=== PATIENT | female | born 1995 | race African-American/Black ===

== ENCOUNTER 2018-05-15 03:43 | Inpatient (IN) | payer SELFPAY ==
[2018-05-15] MEDS ORDERED: Tranexamic Acid 1,000 MG in Sodium Chloride 0.9% 100 ML IV PRN (04:58)
[2018-05-15] MEDS ORDERED: Water For Irrigation,Sterile 1,000 ML Container IRR PRN (04:58)
[2018-05-15] MEDS ORDERED: Nalbuphine 10 MG/1 ML Vial IVPUSH PRN (04:58)
[2018-05-15] MEDS ORDERED: Methylergonovine 0.2 MG/1 ML Amp IM PRN (04:58)
[2018-05-15] MEDS ORDERED: Butorphanol 1 MG/ML SDV IVPUSH PRN (04:58)
[2018-05-15] MEDS ORDERED: Sodium Chloride 0.9% 2.5 ML Syringe FLUSH PRN (04:58)
[2018-05-15] MEDS ORDERED: Misoprostol 200 MCG Tab PO PRN (04:58)
[2018-05-15] MEDS ORDERED: Lidocaine 1% 50 ML MDV INJECT PRN (04:58)
[2018-05-15] MEDS ORDERED: Sodium Chloride 0.9% 10 ML Syringe FLUSH PRN (04:58)
[2018-05-15] MEDS ORDERED: Carboprost Tromethamine 250 MCG/1 ML Amp IM PRN (04:58)
[2018-05-15] MEDS ORDERED: Oxytocin/0.9 % Sodium Chloride 30 UNIT/500 ML BAG IV SCH (05:00)
[2018-05-15] MEDS ORDERED: Lactated Ringers 1,000 ML IV SCH (05:00)
[2018-05-15] MEDS ORDERED: oxyCODONE 5 MG Tab PO PRN (10:04)
[2018-05-15] MEDS ORDERED: Lanolin 100% Cream 7 GM Tube TOP PRN (10:04)
[2018-05-15] MEDS ORDERED: Docusate Sodium 100 MG Cap PO PRN (10:04)
[2018-05-15] MEDS ORDERED: Witch Hazel Medicated Pads 40/Jar TOP PRN (10:04)
[2018-05-15] MEDS ORDERED: Benzocaine/Menthol 20%-0.5% Spray 78 GM Cannister TOP PRN (10:04)
[2018-05-15] MEDS ORDERED: Acetaminophen 500 MG Tab PO PRN ×2 (10:04)
[2018-05-15] MEDS ORDERED: Ibuprofen 400 MG Tab PO PRN (10:04)
[2018-05-15] MEDS ORDERED: Bisacodyl 10 MG Supp RECTAL PRN (10:04)
--- NOTE | 2018-05-15 10:11 | PCM.DEL ---
L & D Note - General Info Date of Service: 05/15/18 - Delivery Note Labor: Spontaneous Delivery Outcome: Livebirth Delivery Method: Spontaneous Vaginal Delivery-Single Presentation: Left Occiput Anterior (MAUDE) Nuchal Cord: Present, Reduced Prep: Other Anesthesia Type: Local Anesthetic: Lidocaine (Xylocaine) 1% Plain Local Anesthetic Volume: 5cc Amniotic Fluid Description: Clear Episiotomy Type: None Laceration: 1st Degree, Labial, Vaginal Suture type: Vicryl Suture size: 2-0 Placenta: Intact, Spontaneous Cord: 3 Vessels Estimated Blood Loss: 200 Resuscitation Needed: No : Bulb Syringe, Stimulated, [place] Used Second Stage Interventions: Reports: Encouragement Given, Pushing Ineffectively , Pushing, Feet in Foot Rests - General Info Date of Service: 05/15/18 - Patient Data Weight - Most Recent: 190 lb Lab Results Last 24 Hours: Laboratory Results - last 24 hr 05/15/18 05/15/18 05/15/18 Range/Units 04:13 05:20 05:20 WBC 9.30 (4.0-11.0) K/uL RBC 4.63 (4.30-5.90) M/uL Hgb 10.5 L (12.0-16.0) g/dL Hct 31.6 L (36.0-46.0) % MCV 68.3 L (80.0-98.0) fL MCH 22.7 L (27.0-32.0) pg MCHC 33.2 (31.0-37.0) g/dL RDW Std Deviation 38.2 (28.0-62.0) fl RDW Coeff of [place] 16 H (11.0-15.0) % Plt Count 162 (150-400) K/uL Nucleated RBC % 0.0 /100WBC Nucleated RBCs # 0 K/uL Membrane Rupture POSITIVE Blood Type A POSITIVE Antibody Screen NEGATIVE Med Orders - Current: Current Medications Acetaminophen (Tylenol Extra Strength) 500 mg PO Q4H PRN PRN Reason: Pain Acetaminophen (Tylenol Extra Strength) 1,000 mg PO Q4H PRN PRN Reason: Pain Benzocaine/Menthol (Dermoplast Pain Relief 20%-0.5% [place]) 78 gm TOP ASDIRECTED PRN PRN Reason: Perineal Comfort Measure Bisacodyl (Dulcolax) 10 mg RECTAL .ONCE PRN PRN Reason: Constipation Docusate Sodium (Colace) 100 mg PO BID PRN PRN Reason: Constipation Emollient Ointment (Lansinoh Hpa) 0 gm TOP ASDIRECTED PRN PRN Reason: Sore Nipples Ibuprofen (Motrin) 400 mg PO Q4H PRN PRN Reason: Pain Ibuprofen (Motrin) 800 mg PO Q6H PRN PRN Reason: Pain Oxycodone HCl (Oxycodone) 5 mg PO Q2H PRN PRN Reason: Pain Witch Birgit (Tucks) 1 pad TOP ASDIRECTED PRN PRN Reason: comfort care Discontinued Medications Butorphanol Tartrate (Stadol) 1 mg IVPUSH Q1H PRN PRN Reason: Pain Carboprost Tromethamine (Hemabate Ds) 250 mcg IM ASDIRECTED PRN PRN Reason: Post Hemorrhage Tranexamic Acid 1,000 mg/ (Sodium Chloride) 110 mls @ 660 mls/hr IV ONETIME PRN PRN Reason: Bleeding Lactated Ringer's (Ringers, Lactated) 1,000 mls @ 150 mls/hr IV ASDIRECTED POPEYE Oxytocin/Sodium Chloride (Oxytocin 30 Unit/500 Ml-Ns) 30 unit in 500 mls @ 999 mls/hr IV TITRATE [facility] Last Admin: 05/15/18 09:54 Dose: 999 mls/hr Lidocaine HCl (Xylocaine 1%) 50 ml INJECT .ONCE PRN PRN Reason: Laceration repair Methylergonovine Maleate (Methergine) 0.2 mg IM ASDIRECTED PRN PRN Reason: Post Hemorrhage Misoprostol (Cytotec) 200 mcg PO .ONCE PRN PRN Reason: Post Hemorrhage Nalbuphine HCl (Nubain) 10 mg IVPUSH Q1H PRN PRN Reason: Pain (severe 7-10) Sodium Chloride (Saline Flush) 10 ml FLUSH ASDIRECTED PRN PRN Reason: Keep Vein Open Sodium Chloride (Saline Flush) 2.5 ml FLUSH ASDIRECTED PRN PRN Reason: Keep Vein Open Sterile Water (Sterile Water For Irrigation) 1,000 ml IRR ASDIRECTED PRN PRN Reason: delivery Last Admin: 05/15/18 09:30 Dose: 1,000 ml - Problem List & Annotations (1) Vaginal delivery SNOMED Code(s): 244965807 Code(s): O80 - ENCOUNTER FOR FULL-TERM UNCOMPLICATED DELIVERY Status: Acute Current Visit: Yes - Problem List Review Problem List Initiated/Reviewed/Updated: Yes - My Orders Last 24 Hours: My Active Orders 05/15/18 09:36 BLOOD GAS ARTERIAL UMBILICAL [BG] Routine BLOOD GAS VENOUS UMBILICAL [BG] Routine 05/15/18 10:04 Acetaminophen [Tylenol Extra Strength] 1,000 mg PO Q4H PRN Acetaminophen [Tylenol Extra Strength] 500 mg PO Q4H PRN Benzocaine/Menthol [Dermoplast Pain Relief 20%-0.5% [place]] 78 gm TOP ASDIRECTED PRN Bisacodyl [Dulcolax] 10 mg RECTAL .ONCE PRN Docusate Sodium [Colace] 100 mg PO BID PRN Ibuprofen [Motrin] 400 mg PO Q4H PRN Ibuprofen [Motrin] 800 mg PO Q6H PRN Lanolin [Lansinoh HPA] See Dose Instructions TOP ASDIRECTED PRN Witch Birgit [Tucks] 1 pad TOP ASDIRECTED PRN oxyCODONE 5 mg PO Q2H PRN Breast Pump [WOMSER] Per Unit Routine Resuscitation Status Routine 05/15/18 10:05 Patient Status [ADT] Routine May Shower [RC] ASDIRECTED Up ad Antonella [RC] ASDIRECTED Vital Signs [RC] PER UNIT ROUTINE Assess Lochia [WOMSER] Per Unit Routine Assess Uterine Involution [WOMSER] Per Unit Routine Perineal Care [OM.PC] Per Unit Routine Peripheral IV Discontinue [OM.PC] Routine 05/15/18 Lunch Regular Diet [DIET] 05/16/18 05:11 HEMOGLOBIN/HEMATOCRIT,HH [HEME] Timed
[2018-05-15] MEDS ORDERED: Aluminum Hydroxide/Magnesium Hydroxide/Simethicone Susp 30 ML Cup PO ONE (11:23)
[2018-05-15] MEDS: Ibuprofen 800 MG Tab PO PRN ×2 (12:07→20:49)
--- NOTE | 2018-05-15 14:28 | OR ---
SURGEON: Claribel Hilliard MD DATE OF PROCEDURE: 05/15/2018 PREOPERATIVE DIAGNOSES: 1. Term at 39 weeks. 2. Active labor with spontaneous rupture of membrane POSTOPERATIVE DIAGNOSES: 1. Term at 39 weeks. 2. Active labor with spontaneous rupture of membrane 3. Delivered. PROCEDURES: 1. Spontaneous vaginal delivery. 2. Repair of perineal lacerations. ANESTHESIA: Local. ESTIMATED BLOOD LOSS: 200 mL. COMPLICATIONS: None. DISPOSITION: Mother and baby stable in Labor and Delivery room, bonding. FINDINGS: Male , weight 3000 g, score 8 and 9 at 1 and 5 minutes respectively. Grossly normal placenta with 3-vessel cord. First-degree vaginal laceration and left labial laceration. BRIEF HISTORY: The patient is a 23-year-old primigravida, 39 weeks gestation, who is a patient of Nicole Valverde,the director enterprise data architecture at [facility]. [facility] is taking care of the patients from their practice this week since the attending physician, Dr. Donaldson is away. Chelle presented early hours of this morning at about 5:00am with a history of spontaneous rupture of membranes, clear amniotic fluid at 4:00 a.m. accompanied with regular contractions. On examination, she was confirmed to be grossly ruptured and was 5 cm dilated on admission. With category 1 tracing, she was admitted and observed for progression of labor. Her care was otherwise uncomplicated and the GBS status was negative. When she was re-examined 2 hours later, she had progressed to 7 cm dilatation and was coping well with her contractions. The heart tracing continued to be reassuring. She declined pain management. With complaints of increasing rectal pressure, I re-evaluated her at about 9:00 a.m.,she was fully dilated at +2 station. Owing to the fact that she had no epidural on board and with a strong urge to push, she was set up for delivery in modified dorsal lithotomy position. She pushed initially ineffectively, but with good encouragement and support, she pushed the baby's head down to a +4 station. DESCRIPTION OF PROCEDURE: She had a spontaneous vaginal delivery of a live male in left occipital anterior position, loose nuchal cord, which was reduced. Clear amniotic fluid at delivery. Anterior and posterior shoulders and the rest of the baby were delivered without difficulty. The baby was vigorous and cried spontaneously at and was delivered onto the maternal abdomen, with the nursery nurse in attendance stimulating and drying him. Delayed cord clamping was observed and the cord was subsequently cut by the father of the baby. Low-dose oxytocin had been commenced while the patient was pushing which was just 2 milliunits per minute and this was then converted to titration for active management of third stage of labor. The placenta was delivered by controlled cord traction, appeared to be complete and intact. Examination of the perineum revealed a transverse vaginal laceration located around the hymenal ring and also left labial laceration. The area was then infiltrated with approximately 5 mL of 1% lidocaine. After adequate anesthesia was confirmed, it was then repaired with 2-0 Vicryl suture. Both repairs were hemostatic. Uterine massage was performed, uterus was found to be well contracted below the umbilicus. The patient tolerated the procedure well. Sponge, instrument, and needle counts were correct at the end of the delivery. ADUMVIV / MODL /[id number] MTDYue
--- NOTE | 2018-05-16 08:07 | PCM.PNPP ---
- General Info Date of Service: 05/16/18 Functional Status: Reports: Pain Controlled, Tolerating Diet, Ambulating, Urinating - Review of Systems General: Denies: Fever, Chills HEENT: Denies: Headaches Pulmonary: Denies: Shortness of Breath, Pleuritic Chest Pain Cardiovascular: Denies: Chest Pain, Palpitations, Dyspnea on Exertion Gastrointestinal: Denies: Abdominal Pain Genitourinary: Denies: Dysuria, Incontinence, Retention - General Info Date of Service: 05/16/18 - Patient Data Vital Signs - Most Recent: Last Vital Signs Temp 36.8 C 05/16/18 05:00 Pulse 77 05/16/18 05:00 Resp 16 05/16/18 05:00 BP 115/68 05/16/18 05:00 Pulse Ox 100 05/16/18 05:00 Weight - Most Recent: 190 lb Lab Results - Last 24 Hours: Laboratory Results - last 24 hr 05/15/18 05/16/18 Range/Units 09:34 05:50 Hgb 9.8 L (12.0-16.0) g/dL Hct 30.2 L (36.0-46.0) % Cord ABG pH 7.212 (7.18-7.38) Cord ABG Base Excess -7 (-10--2) Cord VBG pH 7.287 (7.25-7.45) Cord VBG Base Excess -7 (-10--2) Med Orders - Current: Current Medications Acetaminophen (Tylenol Extra Strength) 500 mg PO Q4H PRN PRN Reason: Pain Acetaminophen (Tylenol Extra Strength) 1,000 mg PO Q4H PRN PRN Reason: Pain Benzocaine/Menthol (Dermoplast Pain Relief 20%-0.5% [place]) 78 gm TOP ASDIRECTED PRN PRN Reason: Perineal Comfort Measure Last Admin: 05/15/18 11:31 Dose: 78 gm Bisacodyl (Dulcolax) 10 mg RECTAL .ONCE PRN PRN Reason: Constipation Docusate Sodium (Colace) 100 mg PO BID PRN PRN Reason: Constipation Last Admin: 05/15/18 12:07 Dose: 100 mg Emollient Ointment (Lansinoh Hpa) 0 gm TOP ASDIRECTED PRN PRN Reason: Sore Nipples Last Admin: 05/15/18 11:32 Dose: 7 gm Ibuprofen (Motrin) 400 mg PO Q4H PRN PRN Reason: Pain Ibuprofen (Motrin) 800 mg PO Q6H PRN PRN Reason: Pain Last Admin: 05/15/18 20:49 Dose: 800 mg Oxycodone HCl (Oxycodone) 5 mg PO Q2H PRN PRN Reason: Pain Witch [place] (Tucks) 1 pad TOP ASDIRECTED PRN PRN Reason: comfort care Last Admin: 05/15/18 11:31 Dose: 1 pad Discontinued Medications Al Hydroxide/Mg Hydroxide (Mag-Al Plus) 30 ml PO ONETIME ONE Stop: 05/15/18 11:24 Last Admin: 05/15/18 12:06 Dose: 30 ml Butorphanol Tartrate (Stadol) 1 mg IVPUSH Q1H PRN PRN Reason: Pain Carboprost Tromethamine (Hemabate Ds) 250 mcg IM ASDIRECTED PRN PRN Reason: Post Hemorrhage Tranexamic Acid 1,000 mg/ (Sodium Chloride) 110 mls @ 660 mls/hr IV ONETIME PRN PRN Reason: Bleeding Lactated Ringer's (Ringers, Lactated) 1,000 mls @ 150 mls/hr IV ASDIRECTED POPEYE Oxytocin/Sodium Chloride (Oxytocin 30 Unit/500 Ml-Ns) 30 unit in 500 mls @ 999 mls/hr IV TITRATE [facility] Last Admin: 05/15/18 09:34 Dose: 999 mls/hr Lidocaine HCl (Xylocaine 1%) 50 ml INJECT .ONCE PRN PRN Reason: Laceration repair Methylergonovine Maleate (Methergine) 0.2 mg IM ASDIRECTED PRN PRN Reason: Post Hemorrhage Misoprostol (Cytotec) 200 mcg PO .ONCE PRN PRN Reason: Post Hemorrhage Nalbuphine HCl (Nubain) 10 mg IVPUSH Q1H PRN PRN Reason: Pain (severe 7-10) Sodium Chloride (Saline Flush) 10 ml FLUSH ASDIRECTED PRN PRN Reason: Keep Vein Open Sodium Chloride (Saline Flush) 2.5 ml FLUSH ASDIRECTED PRN PRN Reason: Keep Vein Open Sterile Water (Sterile Water For Irrigation) 1,000 ml IRR ASDIRECTED PRN PRN Reason: delivery Last Admin: 05/15/18 09:30 Dose: 1,000 ml - Infant Interaction Infant Disposition, : in Room with Family Infant Interaction: Holding Infant Infant Feeding: Attempted ; Nursed Fair/Poor (Supplemented with formulae), Continues to Breastfeed, Encouraged to Breastfeed Support Person: , Friend - Recovery Exam Fundal Tone: Firm Fundal Level: 1 Fingerbreadths Below Umbilicus Fundal Placement: Midline Lochia Amount: Scant Lochia Color: Rubra/Red Perineum Description: Intact, Minimal Bruising/Swelling Other Perinuem Description: First degree tear Episiotomy/Laceration: Approximated Bladder Status: Voiding Urinary Elimination: Voided - Exam General: Alert, Oriented Lungs: Clear to Auscultation, Normal Respiratory Effort Cardiovascular: Regular Rate, Regular Rhythm GI/Abdominal Exam: Normal Bowel Sounds Extremities: Non-Tender, Pedal Edema Wound/Incisions: Healing Well - Problem List & Annotations (1) Vaginal delivery SNOMED Code(s): 890270250 Code(s): O80 - ENCOUNTER FOR FULL-TERM UNCOMPLICATED DELIVERY Status: Acute Current Visit: Yes - Problem List Review Problem List Initiated/Reviewed/Updated: Yes - My Orders Last 24 Hours: My Active Orders 05/15/18 10:04 Acetaminophen [Tylenol Extra Strength] 1,000 mg PO Q4H PRN Acetaminophen [Tylenol Extra Strength] 500 mg PO Q4H PRN Benzocaine/Menthol [Dermoplast Pain Relief 20%-0.5% [place]] 78 gm TOP ASDIRECTED PRN Bisacodyl [Dulcolax] 10 mg RECTAL .ONCE PRN Docusate Sodium [Colace] 100 mg PO BID PRN Ibuprofen [Motrin] 400 mg PO Q4H PRN Ibuprofen [Motrin] 800 mg PO Q6H PRN Lanolin [Lansinoh HPA] See Dose Instructions TOP ASDIRECTED PRN Witch [place] [Tucks] 1 pad TOP ASDIRECTED PRN oxyCODONE 5 mg PO Q2H PRN Breast Pump [WOMSER] Per Unit Routine Resuscitation Status Routine 05/15/18 10:05 Patient Status [ADT] Routine May Shower [RC] ASDIRECTED Up ad [place]ella [RC] ASDIRECTED Vital Signs [RC] PER UNIT ROUTINE Assess Lochia [WOMSER] Per Unit Routine Assess Uterine Involution [WOMSER] Per Unit Routine Perineal Care [OM.PC] Per Unit Routine Peripheral IV Discontinue [OM.PC] Routine 05/15/18 Lunch Regular Diet [DIET] - Assessment Assessment:: PPD#1 s/p NVD, stable and afebrile - Plan Plan:: Discharge instructions reviewed Nothing in the vagina for 6 weeks Bleeding and infections precautions reviewed Continue PNV and start Iron supplements May use OTC meds for pain Follow up in [facility] in 6 weeks
== END 2018-05-16 12:55 | disposition home or self-care (01) | DRG 775 ==
LOC: MW.OBCHECK 03:43 → MW.OB 03:47 → MW.OBCHECK 04:58 → UNDOADMOB 04:58 → MW.OB 04:59 → UNDOADMOB 04:59 → OBSVTOIN 09:34 → MW.OB 13:12
PROVIDERS: ADMIT Obstetrics & Gynecology; ATTEND Obstetrics & Gynecology
PROC: 10E0XZZ Delivery of Products of Conception, External Approach (ICD-10-PCS; principal; 2018-05-15)
PROC: 0HQ9XZZ Repair Perineum Skin, External Approach (ICD-10-PCS; 2018-05-15)
DX: O42.02 Full-term premature rupture of membranes, onset of labor within 24 hours of rupture (principal); O70.0 First degree perineal laceration during delivery; Z3A.39 39 weeks gestation of pregnancy; Z37.0 Single live birth
CPT/HCPCS: 36415; 59025; 59409; 82803; 84112; 85014; 85018; 85027; 86850; 86900; 86901; A9270-GY; J2590

== ENCOUNTER 2018-11-19 12:48 | Emergency (ER) | payer SELFPAY ==
--- NOTE | 2018-11-19 14:08 | EDM.PDOC ---
ED HPI GENERAL MEDICAL PROBLEM - General Chief Complaint: Fever Stated Complaint: FEVER PREG. Time Seen by Provider: 11/19/18 14:04 Source of Information: Reports: Patient History Limitations: Reports: No Limitations - History of Present Illness INITIAL COMMENTS - FREE TEXT/NARRATIVE: HISTORY AND PHYSICAL: History of present illness: Patient is a 23-year-old female who presents to the emergency room today with complaints of fever and generalized body aches since Sunday. She took a test yesterday, found out she is . LMP approx 6 weeks ago. She denies any cough, shortness of breath, chest pain. Denies any abdominal pain , nausea, vomiting, diarrhea or constipation. She has mild pelvic pain with dysuria. Denies any vaginal bleeding or discharge. States she has [facility] with [facility]. Review of systems: As per history of present illness and below otherwise all systems reviewed and negative. Past medical history: As per history of present illness and as reviewed below otherwise noncontributory. Surgical history: As per history of present illness and as reviewed below otherwise noncontributory. Social history: See social history for further information Family history: As per history of present illness and as reviewed below otherwise noncontributory. Physical exam: General: Well-developed and well-nourished 23-year-old -[place] female. Alert and oriented. Nontoxic appearing and in no acute distress. HEENT: Atraumatic, normocephalic, pupils equal and reactive bilaterally, negative for conjunctival pallor or scleral icterus, mucous membranes moist, TMs normal bilaterally, throat clear, neck supple, nontender, trachea midline. No drooling or trismus noted. No meningeal signs. No hot potato voice noted. Lungs: Clear to auscultation, breath sounds equal bilaterally, chest nontender. Heart: S1S2, regular rate and rhythm without overt murmur Abdomen: Soft, nondistended, nontender. Negative for masses or hepatosplenomegaly. Negative for costovertebral tenderness. Pelvis: Stable nontender. Genitourinary: Deferred. Rectal: Deferred. Skin: Intact, warm, dry. No lesions or rashes noted. Extremities: Atraumatic, negative for cords or calf pain. Neurovascular unremarkable. Neuro: Awake, alert, oriented. Cranial nerves II through XII unremarkable. Cerebellum unremarkable. Motor and sensory unremarkable throughout. Exam nonfocal. Notes: Patient's lab work is unremarkable. I do want her to follow-up closely with her EQUIPMENT MAINTENANCE TECH, Nicole Muhammad for further evaluation and management. I am to treat her with Augmentin and some Zofran as she does mention concerned that she may have some nausea due to her recent use of . Supportive care measures were reviewed and discussed. Denies any further questions or concerns at this time. Diagnostics: Influenza, UA, HCGU Therapeutics: IV fluid Prescription: Augmentin Zofran Impression: UTI Dehydration Plan: 1. Please take the medication as directed. 2. Tylenol as needed for pain. Increase your oral fluids to prevent dehydration. 3. Please follow-up with Nicole Valverde in the next 1-2 days. Return to ED as needed and as discussed. Definitive disposition and diagnosis as appropriate pending reevaluation and review of above. Lower Abdominal Pain Score (Numeric/FACES): 5 - Related Data Allergies Allergy/AdvReac Type Severity Reaction Status Date / Time No Known Allergies Allergy Verified 11/19/18 13:25 Home Meds: Home Meds . 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 ED EXAM, GENERAL - Physical Exam Exam: See Below (See dictation) Course - Vital Signs Last Recorded V/S: Last Vital Signs Temp 98.4 F 11/19/18 13:23 Pulse 95 11/19/18 13:23 Resp 16 11/19/18 13:23 BP 116/66 11/19/18 13:23 Pulse Ox 100 11/19/18 13:23 - Orders/Labs/Meds Orders: Active Orders 24 hr Category Date Time Status CULTURE URINE [RM] Stat Lab 11/19/18 14:06 Received Labs: Laboratory Tests 11/19/18 11/19/18 11/19/18 Range/Units 14:06 14:06 15:09 WBC 2.91 L (4.0-11.0) K/uL RBC 5.65 (4.30-5.90) M/uL Hgb 11.8 L (12.0-16.0) g/dL Hct 35.8 L (36.0-46.0) % MCV 63.4 L (80.0-98.0) fL MCH 20.9 L (27.0-32.0) pg MCHC 33.0 (31.0-37.0) g/dL RDW Std Deviation 41.3 (28.0-62.0) fl RDW Coeff of [place] 19 H (11.0-15.0) % Plt Count 197 (150-400) K/uL Neut % (Auto) 50.5 (48.0-80.0) % Lymph % (Auto) 37.5 (16.0-40.0) % [place] % (Auto) 11.7 (0.0-15.0) % Eos % (Auto) 0.0 (0.0-7.0) % Baso % (Auto) 0.3 (0.0-1.5) % Neut # (Auto) 1.5 (1.4-5.7) K/uL Lymph # (Auto) 1.1 (0.6-2.4) K/uL [place] # (Auto) 0.3 (0.0-0.8) K/uL Eos # (Auto) 0.0 (0.0-0.7) K/uL Baso # (Auto) 0.0 (0.0-0.1) K/uL Nucleated RBC % 0.0 /100WBC Nucleated RBCs # 0 K/uL Sodium (136-145) mmol/L Potassium (3.5-5.1) mmol/L Chloride (98-107) mmol/L Carbon Dioxide (21.0-32.0) mmol/L BUN (7.0-18.0) mg/dL Creatinine (0.6-1.0) mg/dL Est Cr Clr Drug Dosing mL/min Estimated GFR (MDRD) ml/min Glucose (74-106) mg/dL Calcium (8.5-10.1) mg/dL Total Bilirubin (0.2-1.0) mg/dL AST (15-37) IU/L ALT (14-63) IU/L Alkaline Phosphatase (46-116) U/L Total Protein (6.4-8.2) g/dL Albumin (3.4-5.0) g/dL Globulin (2.6-4.0) g/dL Albumin/Globulin Ratio (0.9-1.6) Urine Color YELLOW Urine Appearance SLT CLOUDY Urine pH 6.0 (5.0-8.0) Ur Specific [place] >= 1.030 (1.001-1.035) Urine Protein 30 H (NEGATIVE) mg/dL Urine Glucose (UA) NEGATIVE (NEGATIVE) mg/dL Urine Ketones 40 H (NEGATIVE) mg/dL Urine Occult Blood NEGATIVE (NEGATIVE) Urine Nitrite NEGATIVE (NEGATIVE) Urine Bilirubin SMALL H (NEGATIVE) Urine Ictotest NEGATIVE Urine Urobilinogen 1.0 (<2.0) EU/dL Ur Leukocyte Esterase TRACE H (NEGATIVE) Urine RBC 0-2 (0-2/HPF) Urine WBC 5-10 (0-5/HPF) Ur Epithelial Cells MANY (NONE-FEW) Urine Bacteria FEW (NEGATIVE) Urine Mucus LIGHT (NONE-MOD) Urine HCG, Qual POSITIVE (NEGATIVE) 11/19/18 Range/Units 15:09 WBC (4.0-11.0) K/uL RBC (4.30-5.90) M/uL Hgb (12.0-16.0) g/dL Hct (36.0-46.0) % MCV (80.0-98.0) fL MCH (27.0-32.0) pg MCHC (31.0-37.0) g/dL RDW Std Deviation (28.0-62.0) fl RDW Coeff of [place] (11.0-15.0) % Plt Count (150-400) K/uL Neut % (Auto) (48.0-80.0) % Lymph % (Auto) (16.0-40.0) % [place] % (Auto) (0.0-15.0) % Eos % (Auto) (0.0-7.0) % Baso % (Auto) (0.0-1.5) % Neut # (Auto) (1.4-5.7) K/uL Lymph # (Auto) (0.6-2.4) K/uL [place] # (Auto) (0.0-0.8) K/uL Eos # (Auto) (0.0-0.7) K/uL Baso # (Auto) (0.0-0.1) K/uL Nucleated RBC % /100WBC Nucleated RBCs # K/uL Sodium 136 (136-145) mmol/L Potassium 3.9 (3.5-5.1) mmol/L Chloride 99 (98-107) mmol/L Carbon Dioxide 24.3 (21.0-32.0) mmol/L BUN 9 (7.0-18.0) mg/dL Creatinine 0.7 (0.6-1.0) mg/dL Est Cr Clr Drug Dosing 132.85 mL/min Estimated GFR (MDRD) > 60.0 ml/min Glucose 78 (74-106) mg/dL Calcium 9.8 (8.5-10.1) mg/dL Total Bilirubin 0.4 (0.2-1.0) mg/dL AST 27 (15-37) IU/L ALT 25 (14-63) IU/L Alkaline Phosphatase 58 (46-116) U/L Total Protein 9.4 H (6.4-8.2) g/dL Albumin 4.0 (3.4-5.0) g/dL Globulin 5.4 H (2.6-4.0) g/dL Albumin/Globulin Ratio 0.7 L (0.9-1.6) Urine Color Urine Appearance Urine pH (5.0-8.0) Ur Specific [place] (1.001-1.035) Urine Protein (NEGATIVE) mg/dL Urine Glucose (UA) (NEGATIVE) mg/dL Urine Ketones (NEGATIVE) mg/dL Urine Occult Blood (NEGATIVE) Urine Nitrite (NEGATIVE) Urine Bilirubin (NEGATIVE) Urine Ictotest Urine Urobilinogen (<2.0) EU/dL Ur Leukocyte Esterase (NEGATIVE) Urine RBC (0-2/HPF) Urine WBC (0-5/HPF) Ur Epithelial Cells (NONE-FEW) Urine Bacteria (NEGATIVE) Urine Mucus (NONE-MOD) Urine HCG, Qual (NEGATIVE) Meds: Medications Discontinued Medications Generic Name Dose Route Start Last Admin Trade Name Freq PRN Reason Stop Dose Admin Sodium Chloride 1,000 mls @ 999 mls/hr 11/19/18 14:55 11/19/18 15:08 Normal Saline IV 11/19/18 15:55 999 mls/hr STAT ONE Administration Ondansetron HCl 4 mg 11/19/18 14:55 11/19/18 15:08 Zofran IVPUSH 11/19/18 14:56 4 mg ONETIME ONE Administration Departure - Departure Time of Disposition: 16:00 Disposition: Home, Self-Care 01 Clinical Impression: UTI (urinary tract infection) during Qualifiers: Trimester: first trimester Qualified Code(s): O23.41 - Unspecified infection of urinary tract in , first trimester - Discharge Information Instructions: Urinary Tract Infection, Adult, [id number] Referrals: Nicole Muhammad CNM [Primary Care Provider] - Forms: ED Department Discharge Additional Instructions: The following information is given to patients seen in the emergency department who are being discharged to home. This information is to outline your options for follow-up care. We provide all patients seen in our emergency department with a follow-up referral. The need for follow-up, as well as the timing and circumstances, are variable depending upon the specifics of your emergency department visit. If you don't have a primary care physician on staff, we will provide you with a referral. We always advise you to contact your personal physician following an emergency department visit to inform them of the circumstance of the visit and for follow-up with them and/or the need for any referrals to a consulting specialist. The emergency department will also refer you to a specialist when appropriate. This referral assures that you have the opportunity for follow-up care with a specialist. All of these measure are taken in an effort to provide you with optimal care, which includes your follow-up. Under all circumstances we always encourage you to contact your private physician who remains a resource for coordinating your care. When calling for follow-up care, please make the office aware that this follow-up is from your recent emergency room visit. If for any reason you are refused follow-up, please contact the [facility] Emergency Department at and asked to speak to the emergency department charge nurse. [facility] Primary Care: [facility] [address] [place] [id number] [facility] [address] [place] [address] 1. Please take the medication as directed. 2. Tylenol as needed for pain. Increase your oral fluids to prevent dehydration. 3. Please follow-up with Nicole Valverde in the next 1-2 days. Return to ED as needed and as discussed. - My Orders Last 24 Hours: My Active Orders 11/19/18 14:06 CULTURE URINE [RM] Stat - Assessment/Plan Last 24 Hours: My Active Orders 11/19/18 14:06 CULTURE URINE [RM] Stat
[2018-11-19] MEDS ORDERED: Ondansetron 4 MG/2 ML SDV IVPUSH ONE (14:55)
[2018-11-19] MEDS ORDERED: Sodium Chloride 0.9% 1,000 ML IV ONE (14:55)
[2018-11-19 15:49] LABS: CHLORIDE,CL 99 mmol/L (98-107); SODIUM,NA 136 mmol/L (136-145)
== END 2018-11-19 16:10 | disposition home or self-care (01) ==
LOC: MW.ED 12:48
DX: O23.41 Unspecified infection of urinary tract in pregnancy, first trimester (principal); O99.281 Endocrine, nutritional and metabolic diseases complicating pregnancy, first trimester; E86.0 Dehydration; Z3A.01 Less than 8 weeks gestation of pregnancy
CPT/HCPCS: 36415; 80053; 81001; 81025; 85025; 87086; 87804; 96361; 96374; 99284; J2405; J7040; 87088; 87186

== ENCOUNTER 2019-07-26 05:25 | Inpatient (IN) | payer BC ==
[2019-07-26] MEDS ORDERED: Misoprostol 200 MCG Tab PO PRN (05:31)
[2019-07-26] MEDS ORDERED: Carboprost Tromethamine 250 MCG/1 ML Amp IM PRN (05:31)
[2019-07-26] MEDS ORDERED: Tranexamic Acid 1,000 MG in Sodium Chloride 0.9% 100 ML IV PRN (05:31)
[2019-07-26] MEDS ORDERED: Water For Irrigation,Sterile 1,000 ML Container IRR PRN (05:31)
[2019-07-26] MEDS ORDERED: Sodium Chloride 0.9% 10 ML Syringe FLUSH PRN (05:31)
[2019-07-26] MEDS ORDERED: Lidocaine 1% 50 ML MDV INJECT PRN (05:31)
[2019-07-26] MEDS ORDERED: Sodium Chloride 0.9% 2.5 ML Syringe FLUSH PRN (05:31)
[2019-07-26] MEDS ORDERED: Butorphanol 1 MG/ML SDV IVPUSH PRN (05:31)
[2019-07-26] MEDS ORDERED: Nalbuphine 10 MG/1 ML Vial IVPUSH PRN (05:31)
[2019-07-26] MEDS ORDERED: Sodium Chloride 0.9% 10 ML SDV IV PRN (05:31)
[2019-07-26] MEDS ORDERED: Methylergonovine 0.2 MG/1 ML Amp IM PRN (05:31)
[2019-07-26] MEDS ORDERED: Lactated Ringers 1,000 ML IV SCH (05:45)
[2019-07-26] MEDS ORDERED: Oxytocin/0.9 % Sodium Chloride 30 UNIT/500 ML BAG IV SCH (05:45)
[2019-07-26] MEDS ORDERED: Benzocaine/Menthol 20%-0.5% Spray 78 GM Cannister TOP PRN (05:58)
[2019-07-26] MEDS ORDERED: Lanolin 100% Cream 7 GM Tube TOP PRN (05:58)
[2019-07-26] MEDS ORDERED: oxyCODONE 5 MG Tab PO PRN (05:58)
[2019-07-26] MEDS ORDERED: Witch Hazel Medicated Pads 40/Jar TOP PRN (05:58)
[2019-07-26] MEDS ORDERED: Ibuprofen 400 MG Tab PO PRN (05:58)
[2019-07-26] MEDS ORDERED: Ibuprofen 800 MG Tab PO PRN (05:58)
[2019-07-26] MEDS ORDERED: Docusate Sodium 100 MG Cap PO PRN (05:58)
[2019-07-26] MEDS ORDERED: Bisacodyl 10 MG Supp RECTAL PRN (05:58)
--- NOTE | 2019-07-26 05:58 | PCM.LDHP ---
L&D History of Present Illness - General Date of Service: 07/26/19 Admit Problem/Dx: Patient Status Order with Admit Dx/Problem 07/26/19 05:31 Patient Status [ADT] Routine Admission Diagnosis/Problem Admission Diagnosis/Problem Source of Information: Patient History Limitations: Reports: No Limitations - History of Present Illness Improves with: Reports: None Worsens with: Reports: None Associated Symptoms: Reports: N - Related Data Allergies/Adverse Reactions: Allergies Allergy/AdvReac Type Severity Reaction Status Date / Time No Known Allergies Allergy Verified 11/19/18 13:25 Home Medications: Home Meds . 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: Social & Family History - Family History Family Medical History: Noncontributory Cardiac: Reports: Hypertension H&P Review of Systems - Review of Systems: Review Of Systems: See Below General: Reports: No Symptoms HEENT: Reports: No Symptoms Pulmonary: Reports: No Symptoms Cardiovascular: Reports: No Symptoms Gastrointestinal: Reports: No Symptoms Genitourinary: Reports: No Symptoms Musculoskeletal: Reports: No Symptoms Skin: Reports: No Symptoms Psychiatric: Reports: No Symptoms Neurological: Reports: No Symptoms Hematologic/Lymphatic: Reports: No Symptoms Immunologic: Reports: No Symptoms L&D Exam - Exam Exam: See Below - Vital Signs Weight: 87.997 kg - OB Specific Fundal Height In cm: 37 Contraction Intensity: Moderate Movement: Active Heart Tones: Present Presentation: Vertex - Garibay Score Garibay Score Cervix Position: Anterior Garibay Score Consistency: Soft Garibay Score Effacement: >80% Garibay Score Dilation: > 5 cm Garibay Score 's Station: -1 ,0 Garibay Score Total: 12 - Exam General: Alert, Oriented HEENT: PERRLA, Conjunctiva Clear, EACs Clear, EOMI, Hearing Intact, Mucosa Moist & [place], Nares Patent, Normal Nasal Septum, Posterior Pharynx Clear, TMs Clear Neck: Supple, Trachea Midline Lungs: Clear to Auscultation, Normal Respiratory Effort Cardiovascular: Regular Rate, Regular Rhythm GI/Abdominal Exam: Normal Bowel Sounds, Soft, Non-Tender, No Organomegaly, No Distention, No Abnormal Bruit, No Mass, Pelvis Stable Rectal Exam: Normal Exam, Normal Rectal Tone Genitourinary: Normal external exam, Normal bimanual exam, Normal speculum exam Back Exam: Normal Inspection, Full Range of Motion Extremities: Normal Inspection, Normal Range of Motion, Non-Tender, No Pedal Edema, Normal Capillary Refill Skin: Warm, Dry, Intact Neurological: Cranial Nerves Intact, Reflexes Equal Bilateral Psychiatric: Alert, Normal Affect, Normal Mood Problem List Initiated/Reviewed/Updated: Yes Orders Last 24hrs: Active Orders 24 hr Category Date Time Status Patient Status [ADT] Routine ADT 07/26/19 05:31 Active Heart Tones [RC] CONTINUOUS Care 07/26/19 05:31 Active Non Stress Test [RC] PER UNIT ROUTINE Care 07/26/19 05:31 Active May Shower [RC] ASDIRECTED Care 07/26/19 05:31 Active Notify Provider [RC] PRN Care 07/26/19 05:31 Active Up ad Antonella [RC] ASDIRECTED Care 07/26/19 05:31 Active Vaginal Exam [RC] PRN Care 07/26/19 05:31 Active Vital Signs [RC] PER UNIT ROUTINE Care 07/26/19 05:31 Active CBC W/O DIFF,HEMOGRAM [HEME] Routine Lab 07/26/19 05:31 Ordered TYPE AND SCREEN [BBK] Routine Lab 07/26/19 05:31 Ordered Butorphanol [Stadol] Med 07/26/19 05:31 Active 1 mg IVPUSH Q1H PRN Carboprost Tromethamine [Hemabate DS] Med 07/26/19 05:31 Active 250 mcg IM ASDIRECTED PRN Lactated Ringers [Ringers, Lactated] 1,000 ml Med 07/26/19 05:45 Active IV ASDIRECTED Lidocaine 1% [Xylocaine 1%] Med 07/26/19 05:31 Active 50 ml INJECT ONETIME PRN Methylergonovine [Methergine] Med 07/26/19 05:31 Active 0.2 mg IM ASDIRECTED PRN Nalbuphine [Nubain] Med 07/26/19 05:31 Active 10 mg IVPUSH Q1H PRN Oxytocin/0.9 % Sodium Chloride [Oxytocin 30 Unit/500 ML Med 07/26/19 05:45 Active -NS] 30 unit in 500 ml IV TITRATE Sodium Chloride 0.9% [Normal Saline] Med 07/26/19 05:31 Active 10 ml IV ASDIRECTED PRN Sodium Chloride 0.9% [Saline Flush] Med 07/26/19 05:31 Active 10 ml FLUSH ASDIRECTED PRN Sodium Chloride 0.9% [Saline Flush] Med 07/26/19 05:31 Active 2.5 ml FLUSH ASDIRECTED PRN Tranexamic Acid [Cyklokapron] 1,000 mg Med 07/26/19 05:31 Active Sodium Chloride 0.9% [Normal Saline] 100 ml IV ONETIME Water For Irrigation,Sterile [Sterile Water for Med 07/26/19 05:31 Active Irrigation] 1,000 ml IRR ASDIRECTED PRN miSOPROStol [Cytotec] Med 07/26/19 05:31 Active 200 mcg PO ONETIME PRN Scalp Electrode [WOMSER] Per Unit Routine Oth 07/26/19 05:31 Ordered Peripheral IV Insertion Adult [OM.PC] Routine Oth 07/26/19 05:31 Ordered Resuscitation Status Routine Resus Stat 07/26/19 05:31 Ordered Medication Orders Butorphanol Tartrate (Stadol) 1 mg IVPUSH Q1H PRN PRN Reason: Pain Carboprost Tromethamine (Hemabate Ds) 250 mcg IM ASDIRECTED PRN PRN Reason: Post Hemorrhage Lactated Ringer's (Ringers, Lactated) 1,000 mls @ 150 mls/hr IV ASDIRECTED POPEYE Oxytocin/Sodium Chloride (Oxytocin 30 Unit/500 Ml-Ns) 30 unit in 500 mls @ 500 mls/hr IV TITRATE POPEYE Tranexamic Acid 1,000 mg/ (Sodium Chloride) 110 mls @ 660 mls/hr IV ONETIME PRN PRN Reason: Bleeding Lidocaine HCl (Xylocaine 1%) 50 ml INJECT ONETIME PRN PRN Reason: Laceration repair Methylergonovine Maleate (Methergine) 0.2 mg IM ASDIRECTED PRN PRN Reason: Post Hemorrhage Misoprostol (Cytotec) 200 mcg PO ONETIME PRN PRN Reason: Post Hemorrhage Nalbuphine HCl (Nubain) 10 mg IVPUSH Q1H PRN PRN Reason: Pain (severe 7-10) Sodium Chloride (Saline Flush) 10 ml FLUSH ASDIRECTED PRN PRN Reason: Keep Vein Open Sodium Chloride (Saline Flush) 2.5 ml FLUSH ASDIRECTED PRN PRN Reason: Keep Vein Open Sodium Chloride (Normal Saline) 10 ml IV ASDIRECTED PRN PRN Reason: IV Use Sterile Water (Sterile Water For Irrigation) 1,000 ml IRR ASDIRECTED PRN PRN Reason: delivery Assessment/Plan Comment:: IUP 40 wks. in active labor.
--- NOTE | 2019-07-26 06:34 | OR ---
SURGEON: Joe Donaldson MD DATE OF PROCEDURE: 07/26/2019 DELIVERY NOTE: Ms. Corbett is a 24-year-old patient. She is para 1-0-0-1. She is followed in our clinic primarily by our nurse manager shift, Nicole Muhammad. She had no issue. Her GBS status was negative. She is 40 weeks' today. Her EDC is today. She is admitted in active labor. At the time of admission, she was completely dilated, vertex, with intact membrane. Later on, I did an artificial rupture of the membrane with clear fluid. With a few pushes, she was able to accomplish normal spontaneous vaginal delivery of a female fetus. She cried immediately. score reported to be 8 and 9. The weight is not available at the time of the dictation. The placenta delivered spontaneous, complete, and intact. There was no perineal, labial, or vaginal laceration. Estimated blood loss 250 to 300 mL. heart rate was category 1 through the entire process of the short labor. There was no complication in this labor and delivery process. MAGI / HUSSEIN /[id number]
[2019-07-26] MEDS: Acetaminophen 500 MG Tab PO PRN ×2 (07:38→16:36)
--- NOTE | 2019-07-27 07:46 | PCM.PNPP ---
- General Info Date of Service: 07/27/19 Functional Status: Reports: Pain Controlled - Review of Systems General: Reports: No Symptoms HEENT: Reports: No Symptoms Pulmonary: Reports: No Symptoms Cardiovascular: Reports: No Symptoms Gastrointestinal: Reports: No Symptoms Genitourinary: Reports: No Symptoms Musculoskeletal: Reports: No Symptoms Skin: Reports: No Symptoms Neurological: Reports: No Symptoms Psychiatric: Reports: No Symptoms - General Info Date of Service: 07/27/19 - Patient Data Vital Signs - Most Recent: Last Vital Signs Temp 36.4 C 07/27/19 05:30 Pulse 68 07/27/19 05:30 Resp 16 07/27/19 05:30 BP 107/61 07/27/19 05:30 Pulse Ox 98 07/26/19 16:17 Weight - Most Recent: 87.997 kg Lab Results - Last 24 Hours: Laboratory Results - last 24 hr 07/26/19 07/27/19 Range/Units 07:00 06:03 Hgb 11.7 L (12.0-16.0) g/dL Hct 36.1 (36.0-46.0) % Blood Type A POSITIVE Antibody Screen NEGATIVE Med Orders - Current: Current Medications Acetaminophen (Tylenol Extra Strength) 500 mg PO Q4H PRN PRN Reason: Pain Last Admin: 07/26/19 07:38 Dose: 500 mg Acetaminophen (Tylenol Extra Strength) 1,000 mg PO Q4H PRN PRN Reason: Pain Last Admin: 07/26/19 16:36 Dose: 1,000 mg Benzocaine/Menthol (Dermoplast Pain Relief 20%-0.5% [place]) 78 gm TOP ASDIRECTED PRN PRN Reason: Perineal Comfort Measure Bisacodyl (Dulcolax) 10 mg RECTAL ONETIME PRN PRN Reason: Constipation Butorphanol Tartrate (Stadol) 1 mg IVPUSH Q1H PRN PRN Reason: Pain Carboprost Tromethamine (Hemabate Ds) 250 mcg IM ASDIRECTED PRN PRN Reason: Post Hemorrhage Docusate Sodium (Colace) 100 mg PO BID PRN PRN Reason: Constipation Emollient Ointment (Lansinoh Hpa) 0 gm TOP ASDIRECTED PRN PRN Reason: Sore Nipples Lactated Ringer's (Ringers, Lactated) 1,000 mls @ 150 mls/hr IV ASDIRECTED REPLACED BY [facility] Oxytocin/Sodium Chloride (Oxytocin 30 Unit/500 Ml-Ns) 30 unit in 500 mls @ 500 mls/hr IV TITRATE REPLACED BY [facility] Last Admin: 07/26/19 05:50 Dose: 500 mls/hr Tranexamic Acid 1,000 mg/ (Sodium Chloride) 110 mls @ 660 mls/hr IV ONETIME PRN PRN Reason: Bleeding Ibuprofen (Motrin) 400 mg PO Q4H PRN PRN Reason: Pain Ibuprofen (Motrin) 800 mg PO Q6H PRN PRN Reason: Pain Lidocaine HCl (Xylocaine 1%) 50 ml INJECT ONETIME PRN PRN Reason: Laceration repair Methylergonovine Maleate (Methergine) 0.2 mg IM ASDIRECTED PRN PRN Reason: Post Hemorrhage Misoprostol (Cytotec) 200 mcg PO ONETIME PRN PRN Reason: Post Hemorrhage Nalbuphine HCl (Nubain) 10 mg IVPUSH Q1H PRN PRN Reason: Pain (severe 7-10) Oxycodone HCl (Oxycodone) 5 mg PO Q2H PRN PRN Reason: Pain Sodium Chloride (Saline Flush) 10 ml FLUSH ASDIRECTED PRN PRN Reason: Keep Vein Open Sodium Chloride (Saline Flush) 2.5 ml FLUSH ASDIRECTED PRN PRN Reason: Keep Vein Open Sodium Chloride (Normal Saline) 10 ml IV ASDIRECTED PRN PRN Reason: IV Use Sterile Water (Sterile Water For Irrigation) 1,000 ml IRR ASDIRECTED PRN PRN Reason: delivery Last Admin: 07/26/19 05:45 Dose: 1,000 ml Witch Birgit (Tucks) 1 pad TOP ASDIRECTED PRN PRN Reason: comfort care Last Admin: 07/26/19 09:21 Dose: 1 tub - Infant Interaction Infant Disposition, : in Room with Family Infant Interaction: Holding Infant Support Person: - Recovery Exam Fundal Tone: Firm Fundal Level: 2 Fingerbreadths Below Umbilicus Fundal Placement: Midline Lochia Amount: Small Lochia Color: Rubra/Red Perineum Description: Intact, Minimal Bruising/Swelling Episiotomy/Laceration: None Bladder Status: Voiding - Exam General: Alert, Oriented HEENT: Pupils Equal Neck: Supple Lungs: Clear to Auscultation, Normal Respiratory Effort Cardiovascular: Regular Rate, Regular Rhythm GI/Abdominal Exam: Normal Bowel Sounds, Soft, Non-Tender, No Organomegaly, No Distention, No Abnormal Bruit, No Mass, Pelvis Stable Extremities: Normal Inspection, Normal Range of Motion, Non-Tender, No Pedal Edema, Normal Capillary Refill Skin: Warm, Dry, Intact Wound/Incisions: Healing Well Neurological: No New Focal Deficit Psy/Mental Status: Alert, Normal Affect, Normal Mood - Problem List Review Problem List Initiated/Reviewed/Updated: Yes - Assessment Assessment:: S/P doing well. - Plan Plan:: IUP 40 wks. in active labor.
[2019-07-27] MEDS: Acetaminophen 500 MG Tab PO PRN ×2 (08:29→08:35)
== END 2019-07-27 14:00 | disposition home or self-care (01) | DRG 560 ==
LOC: MW.OBCHECK 05:25 → MW.OB 05:26 → OBSVTOIN 05:48 → MW.OB 05:48
PROVIDERS: ADMIT Obstetrics & Gynecology; ATTEND Obstetrics & Gynecology
PROC: 10E0XZZ Delivery of Products of Conception, External Approach (ICD-10-PCS; principal; 2019-07-26)
PROC: 10907ZC Drainage of Amniotic Fluid, Therapeutic from Products of Conception, Via Natural or Artificial Opening (ICD-10-PCS; 2019-07-26)
DX: O48.0 Post-term pregnancy (principal); Z3A.40 40 weeks gestation of pregnancy; Z37.0 Single live birth
CPT/HCPCS: 36415; 59025; 59409; 85014; 85018; 85027; 86850; 86900; 86901; A9270-GY; J2590

== ENCOUNTER 2023-06-18 12:19 | Inpatient (IN) | payer BC, OTHER ==
[2023-06-18] MEDS ORDERED: Sodium Chloride 0.9% 20 ML SDV IV PRN (12:35)
[2023-06-18] MEDS ORDERED: Sodium Chloride 0.9% 10 ML Syringe FLUSH PRN (12:35)
[2023-06-18] MEDS ORDERED: Misoprostol 200 MCG Tab PO PRN (12:35)
[2023-06-18] MEDS ORDERED: Sodium Chloride 0.9% 2.5 ML Syringe FLUSH PRN (12:35)
[2023-06-18] MEDS ORDERED: Tranexamic Acid IN NACL,ISO-OS 1,000 MG in Premix Bag 1 BAG IV PRN ×2 (12:35)
[2023-06-18] MEDS ORDERED: Carboprost Tromethamine 250 MCG/1 mL Vial IM PRN (12:35)
[2023-06-18] MEDS ORDERED: Ondansetron 4 MG/2 ML SDV IVPUSH PRN (12:35)
[2023-06-18] MEDS ORDERED: Butorphanol 1 MG/ML SDV IVPUSH PRN (12:35)
[2023-06-18] MEDS ORDERED: Methylergonovine 0.2 MG/1 ML Amp IM PRN (12:35)
[2023-06-18] MEDS ORDERED: Water For Irrigation,Sterile 1,000 ML Container IRR PRN (12:35)
[2023-06-18] MEDS ORDERED: Lidocaine 1% 50 ML MDV INJECT PRN (12:35)
[2023-06-18] MEDS ORDERED: ceFAZolin 2 GM in Sodium Chloride 0.9% 50 ML IV ONE (12:42)
[2023-06-18] MEDS ORDERED: Lactated Ringers 1,000 ML IV SCH (12:45)
[2023-06-18] MEDS ORDERED: Phenylephrine HCl 0.5 MG/5 ML AMP IVPUSH PRN (13:10)
[2023-06-18] MEDS ORDERED: ePHEDrine 50 MG/ML SDV IVPUSH PRN ×2 (13:10)
[2023-06-18 13:13] LABS: HEMATOCRIT 35.1 % (36.0-46.0); HEMOGLOBIN 11.3 g/dL (12.0-16.0); MEAN CORPUSCULAR HEMOGLOBIN 22.7 pg (27.0-32.0); MEAN CORPUSCULAR HGB CONC 32.2 g/dL (31.0-37.0); MEAN CORPUSCULAR VOLUME 70.5 fL (80.0-98.0); NRBC ABSOLUTE 0 K/uL; PLATELET COUNT,PLT 224 K/uL (150-400); RED BLOOD CELL COUNT 4.98 M/uL (4.30-5.90); WHITE BLOOD CELL COUNT,WBC 7.72 K/uL (4.0-11.0)
[2023-06-18] MEDS ORDERED: Ropivacaine HCl/PF 400 MG in Premix Bag 1 BAG EPIDUR SCH (13:15)
[2023-06-18] MEDS: Oxytocin/0.9 % Sodium Chloride 30 UNIT/500 ML BAG IV SCH ×2 (13:23→14:14)
[2023-06-18] MEDS ORDERED: Acetaminophen 500 MG Tab PO PRN ×2 (14:48)
[2023-06-18] MEDS ORDERED: Benzocaine/Menthol 20%-0.5% Spray 78 GM Cannister TOP PRN (14:48)
[2023-06-18] MEDS ORDERED: Ibuprofen 400 MG Tab PO PRN (14:48)
[2023-06-18] MEDS ORDERED: Witch Hazel Medicated Pads 40/Jar TOP PRN (14:48)
[2023-06-18] MEDS ORDERED: Ibuprofen 800 MG Tab PO PRN (14:48)
[2023-06-18] MEDS ORDERED: Bisacodyl 10 MG Supp RECTAL PRN (14:48)
[2023-06-18] MEDS ORDERED: Docusate Sodium 100 MG Cap PO PRN (14:48)
[2023-06-18] MEDS ORDERED: Lanolin 100% Cream 7 GM Tube TOP PRN (14:48)
[2023-06-19 06:06] LABS: HEMATOCRIT 32.7 % (36.0-46.0); HEMOGLOBIN 10.3 g/dL (12.0-16.0)
== END 2023-06-20 13:00 | disposition home or self-care (01) | DRG 560 ==
LOC: MW.OBCHECK 12:19 → MW.OB 12:20 → MW.OBCHECK 13:34 → MW.OB 13:36 → OBSVTOIN 13:44 → MW.OB 19:43
PROVIDERS: ADMIT Obstetrics & Gynecology; ATTEND Obstetrics & Gynecology
PROC: 10E0XZZ Delivery of Products of Conception, External Approach (ICD-10-PCS; principal; 2023-06-18)
PROC: 0KQM0ZZ Repair Perineum Muscle, Open Approach (ICD-10-PCS; 2023-06-18)
DX: O48.0 Post-term pregnancy (principal); Z37.0 Single live birth; O99.824 Streptococcus B carrier state complicating childbirth; O69.81X0 Labor and delivery complicated by cord around neck, without compression, not applicable or unspecified; O70.1 Second degree perineal laceration during delivery; Z3A.40 40 weeks gestation of pregnancy
CPT/HCPCS: 36415; 59025; 59409; 85014; 85018; 85027; 86592; 86850; 86900; 86901; A9270-GY; J0690; J2001; J2590; J3490; J7120